=== PATIENT | female | born 1970 | race Caucasian/White ===

== ENCOUNTER 2021-11-17 14:31 | Emergency (ER) | payer MEDICARE, OTHER ==
[~2021-11-17 14:31] MED LIST: ASPIRIN325 MG PO; ASPIRIN81 MG PO; BACLOFEN 10MG T10 MG PO; CENTRUM SILVER1 EAC4 PO; CLEOCIN300 MG PO; CYMBALTA 30MG C30 MG PO; DOXYCYCLINE MO100 MG PO; FEOSOL325 MG PO; GRALISE600 MG PO; HCTZ25 MG PO; IRON160 MG PO; K-DUR20 MEQ PO; KEPPRA500 MG PO; LASIX40 MG PO; LYRICA25 MG PO; MOBIC7.5 MG PO; NEURONTIN100 MG PO; NICOTINE PATCH1 EAC2 EXT; NORCO 5-325 TA1 EACH PO; OXYCODONE-ACET1 EAC1 PO; PERCOCET 10/321 EACH PO; PRINIVIL20 MG PO; SEROQUEL 100MG100 MG PO; TIZANIDINE HCL4 MG PO; TOPAMAX50 MG PO; VENTOLIN HFA IN18 GM INH; XARELTO10 MG PO
[2021-11-17 16:24] LABS: BASOPHIL 0.8 % (0-2); EOSINOPHIL 3.4 % (0-5); HCT 34.5 % (37.0-47.0); HGB 10.8 g/dl (12.5-16.0); LYMPHOCYTE 35.1 % (15-48); MCH 27.6 pg (25.0-31.0); MCHC 31.3 g/dL (32.0-36.0); MPV 10.6 fL (6.0-9.5); NEUTROPHIL 53.1 % (41-80); NRBC 0; RBC 3.92 M/uL (4.20-5.40); RDW 13.7 % (11.5-14.0)
[2021-11-17 16:29] LABS: BILIRUBIN NEGATIVE (NEGATIVE); BLOOD NEGATIVE Ery/uL (NEGATIVE); CLARITY CLEAR (CLEAR); COLOR YELLOW (YELLOW); GLUCOSE (U) NORMAL (NORMAL); LEUKOCYTES NEGATIVE Leu/uL (NEGATIVE); NITRITE NEGATIVE (NEGATIVE); PROTEIN NEGATIVE (NEGATIVE); UROBILINOGEN 0.2 mg/dL (0.2-1.0); pH 5.5 (5.0-9.0)
[2021-11-17 16:33] LABS: AMPHETAMINES NEGATIVE (NEGATIVE); BARBITURATES NEGATIVE (NEGATIVE); ECSTASY (MDMA) NEGATIVE (NEGATIVE); MARIJUANA (THC) POSITIVE (NEGATIVE); METHADONE NEGATIVE (NEGATIVE); OPIATES NEGATIVE (NEGATIVE); OXYCODONE NEGATIVE (NEGATIVE)
[2021-11-17 16:35] LABS: PLT 314 K/uL (150-400)
[2021-11-17 16:40] LABS: ALBUMIN 3.6 g/dL (3.4-5.0); ALKALINE PHOSHATASE 134 U/L (46-116); ALT 38 U/L (14-59); AST 25 U/L (15-37); BILIRUBIN - TOTAL 0.3 mg/dL (0.2-1.0); BUN 37 mg/dL (7-18); BUN/CREAT RATIO (CALC) 22.6 RATIO; CHLORIDE 103 mmol/L (98-107); CO2 (BICARBONATE) 26 mmol/L (21-32); CREATININE 1.64 mg/dL (0.51-0.95); GLOBULIN (CALCULATION) 4.5 g/dL; GLUCOSE 89 mg/dL (74-106); POTASSIUM 4.6 mmol/L (3.5-5.1); TOTAL PROTEIN 8.1 g/dL (6.4-8.2)
== END 2021-11-17 18:29 | disposition home or self-care (01) ==
LOC: FER 14:31
PROVIDERS: Physician Assistant
DX: R55 Syncope and collapse (principal); I25.2 Old myocardial infarction; N18.9 Chronic kidney disease, unspecified; Z86.73 Personal history of transient ischemic attack (TIA), and cerebral infarction without residual deficits; Z88.2 Allergy status to sulfonamides
CPT/HCPCS: 36415; 70450; 71045; 72125; 80053; 80305; 81003; 84484; 85025; 93005